=== PATIENT | female | born 1980 | race Two or more races ===

== ENCOUNTER 2023-06-03 22:55 | Emergency (ER) | payer OTHER ==
[~2023-06-03] VITALS: Ht 152.4 cm; Wt 74.1 kg
[2023-06-03 23:17] LABS: Basophils # (auto) 0 10 ^3/uL (0-0.2); Basophils % (auto) 0.3 % (0.0-2.0); Eosinophils # (auto) 0.3 10 ^3/uL (0-0.8); Eosinophils % (auto) 3.4 % (0.0-7.0); Hematocrit 34.6 % (36.0-46.0); Lymphocytes # (auto) 2.2 10 ^3/uL (0.4-5.4); Lymphocytes % (auto) 29.2 % (10.0-50.0); Mean Corpuscular Hemoglobin 24.2 pg (28.0-32.0); Mean Corpuscular Hgb Conc. 31.9 g/dL (32.0-36.0); Mean Corpuscular Volume 75.7 fL (80.0-100.0); Monocytes # (auto) 0.7 10 ^3/uL (0-1.3); Monocytes % (auto) 8.8 % (0.0-12.0); Neutrophils # (auto) 4.4 10 ^3/uL (1.6-8.6); Neutrophils % (auto) 58.3 % (37.0-80.0); Red Blood Cells 4.57 10^6/uL (4.0-5.20); Red Cell Distribution Width 15.7 % (11.8-14.3); White Blood Cell 7.6 10^3/uL (4.4-10.8)
[2023-06-03 23:22] LABS: Chloride 108 mmol/L (98-107); Potassium 3.4 mmol/L (3.5-5.1); Sodium 138 mmol/L (136-145)
[2023-06-03 23:23] LABS: Anion Gap 7 (5-15); Calcium 9.1 mg/dL (8.7-10.4); Carbon Dioxide 23 mmol/L (20-30)
[2023-06-03 23:25] LABS: Urine Bacteria NONE SEEN /hpf (None Seen); Urine Blood Negative /uL (Negative); Urine Clarity HAZY (Clear); Urine Color Yellow (Yellow); Urine Protein, UAD Negative (Negative); Urine Specific Gravity 1.023 (1.001-1.035); Urine Urobilinogen Normal (Negative); Urine WBC 2 /hpf (0 - 5); Urine pH 7.5 (5.0-8.0)
[2023-06-03 23:28] LABS: BUN/Creatinine Ratio 16.3 (10.0-20.0); Blood Urea Nitrogen 13 mg/dL (9-23); Glucose 85 mg/dL (74-106)
[2023-06-04] MEDS ORDERED: OMEP-335 PO (01:13)
[2023-06-04] MEDS ORDERED: ACET500T58 PO (01:13)
[2023-06-04] MEDS ORDERED: MAALOX PLUS or MAALOX 30 ML PO ONE (01:15)
[2023-06-04 01:45] VITALS: BP 124/76; PULSE 74; RESP 16; TEMP 97.7; O2SAT 100
== END 2023-06-04 01:51 | disposition home or self-care (01) ==
LOC: ER 22:55
DX: R07.89 Other chest pain (principal); K21.9 Gastro-esophageal reflux disease without esophagitis; E66.01 Morbid (severe) obesity due to excess calories; Z88.8 Allergy status to other drugs, medicaments and biological substances; Z68.31 Body mass index [BMI] 31.0-31.9, adult
CPT/HCPCS: 36415; 71045; 80048; 81001; 84484; 85025; 93005

== ENCOUNTER 2025-02-13 18:10 | Emergency (ER) | payer OTHER ==
[~2025-02-13] VITALS: Ht 154.9 cm; Wt 79.2 kg
[~2025-02-13 18:10] MED LIST: ACET500T58 PO; OMEP-335 PO
--- NOTE | 2025-02-13 18:22 | ECG ---
[facility] Test Date: 2025-02-13 Test Time: 18:20:31 Pat Name: ALANA BILLY Department: ED Room: Gender: F Manager Clinical Applications: AM : 1980 Requested By: RAQUEL ZIMMERMAN Order Number: [id number] Reading MD: Jc Payne Measurements Intervals Taylor Rate: 108 P: 73 FL: 132 QRS: 79 QRSD: 96 T: 45 QT: 353 QTc: 473 Interpretive Statements Sinus tachycardia Ventricular bigeminy Right atrial enlargement Low voltage, precordial leads Electronically Signed On 02-15-2025 20:36:42 PDT by Jc Payne Please click the below link to view image of tracing.
--- NOTE | 2025-02-13 18:38 | ED.PDOC ---
HPI Comments HPI:44 year old female came to ER due to shortness of breath. About an hour prior to arrival, patient developed midesternal chest pressure, non radiating associated with shortness of breath. Noted that her heart rate was low at 54 bpm. States her blood pressure levels are usually low. Initial Vitals BP: 154/77 HR: 107 RR:18 O2: 96% Past Medical History: GERD, depression, dyslipidemia Past Surgical History: , IUD Social History: Denies ETOH, smoking, and drug use. HPI: Poor Historian. REVIEW OF SYSTEMS: CONSTITUTIONAL: Denies acute: fever, diaphoresis, chills, generalized weakness. HEAD: Denies acute: headache, photophobia Eyes: Denies acute: Double vision, vision loss, eye pain, eye discharge. EARS: Denies acute: tinnitus, hearing loss, ear discharge, ear pain, THROAT: Denies acute: sore throat, swelling, difficulty swallowing , pain with swallowing, change in voice. NECK: Denies acute: neck pain, neck swelling, stiff neck. HEART: Denies acute : palpitations, LUNGS: Denies acute: wheezing, cough, hemoptysis ABDOMEN: Denies acute: abdominal pain, Nausea, Vomiting, diarrhea, melena , hematemesis, hematochezia SKIN: Denies acute: rash, redness, lesions, itchiness. EXTREMITIES: Denies acute: calf pain, numbness, tingling, weakness, denies pain in extremity. Denies acute: Low back pain. Neuro: Denies acute: focal neurological deficit, motor or sensory focal neurological deficit, tremors, seizure like activity, confusion, dizziness, change in mental status, loss of bowel or bladder function, cauda equina like symptoms. : Denies acute: dysuria, hematuria, flank pain, increase in urinary frequency. PSYCH: Denies acute: hallucination, suicidal ideation, homicidal ideation. FEMALE: Denies acute: abnormal vaginal bleeding, foul odor, unusual discharge. PHYSICAL EXAM: General: ----no----acute distress, awake and alert. Head: normocephalic, atraumatic. Neck: supple, trachea is midline, no swelling. Throat: Normal phonation. Eyes:, no erythema, no purulent discharge, no proptosis, no icterus. Heart: regular rate, regular rhythm, no significant murmur appreciated. Lungs: no apparent respiratory distress, Able to speak in full sentences. No wheezing, no rhonchi, no crackles. No stridors Clear to auscultation bilaterally. Abdomen: non tender to palpation, non distended, soft, no guarding, no rebound, + bowel sounds. Neuro: Awake, Alert, oriented to name, self, situation, follows commands GCS=15. Speech is normal. Skin: no petechia, no purpura, no cyanosis, non-pale, not jaundice. Lower extremities: --no - Pitting edema no deformity, no focal swelling, no calf TTP. Makes eye contact. moves all four extremities. Face: no apparent facial droop. Ambulating in the ED independently. ED COURSE: DISCLAIMER: This medical document was created using an electronic medical record system with voice recognition software and computerized dictation system. Although this document has been carefully reviewed, there might still be some phonetic and typographical errors. Occasional wrong-word or "sound-alike" substitutions may have occurred due to the inherent limitations of voice recognition software. These areas are purely typographical due to imperfections of the software programs and do not reflect any compromise in the patient's medical care. Please read the chart carefully and recognize, using context, where these substitutions have occurred. Chief Complaint: Shortness of Breath Time Seen by MD: 18:36 Reviewed Notes: Nurses Notes, Allergies Allergies: Coded Allergies: Ondansetron (Verified Allergy, Unknown, 06/03/23) Home Meds Active Scripts Acetaminophen (Acetaminophen) 500 Mg Tab, 500 MG PO Q4HP PRN, #30 TAB Prov:YOLANDA AGUIRRE PAC 06/04/23 Omeprazole (Omeprazole) 20 Mg Tab, 20 MG PO DAILY for 21 Days, #21 TAB Prov:YOLANDA AGUIRRE PAC 06/04/23 Information Source: Patient Mode of Arrival: Ambulatory Past Medical History PAST MEDICAL HISTORY: Depression, GERD Surgical History: MEDICAL STAFF SERVICES MANAGER History: No Pertinent MEDICAL STAFF SERVICES MANAGER History Family History Family History: Reviewed,noncontributory to illness, No family hx of Cancer, No family hx of DM, No family hx of Heart emir, No family hx of HTN, No family hx ofKidney emir, No family hx of Liver emir, No family hx of Lung emir, No family hx of Stroke Social History Smoker: Non-Smoker Alcohol: Denies ETOH Use Drugs: Denies Drug Use Lives In: Home EKG EKG : Pulse Rate (adult): 108 Cardiac Rhythm: ST Comments Ventricular bigeminy Was a procedure done? Was a procedure done?: No CP Differential Dx Differential Diagnosis: N/A Differential Diagnosis: Angina, Chest Wall Pain, Costochondritis, Esophageal reflux/spasm, Gastritis, Myocardial Infarction, Other (Ddx include but not limitied to gastritis, musculoskeletal pain, radiculopathy, atypical chest pain, dissection, aneurysm, ACS, unstable angina, hiatal hernia, GERD, anxiety, costochondritis, PE, pneumothroax, neoplasm, cardiac ischemia, drug abuse, anemia.) X-Ray, Labs, Meds, VS Vital Signs Date Time Temp Pulse Resp B/P (MAP) Pulse Ox O2 Delivery O2 Flow Rate FiO2 02/13/25 21:21 98.2 83 16 14/80 (58) 99 98.2 02/13/25 18:38 108 02/13/25 18:20 108 02/13/25 18:12 97.2 107 18 154/77 96 97.2 Lab Test 02/13/25 21:25 02/13/25 21:23 02/13/25 19:18 02/13/25 18:34 Range/Units Blood Gas Specimen Type Arterial Blood Gas Sample Site Right radial Blood Gas Patient Temperature 37.0 Arterial Blood Date Drawn [id number] Arterial Blood pH 7.407 7.350-7.450 Arterial Blood Partial Pressure CO2 31.9 L 32.0-45.0 mmHg Arterial Blood Partial Pressure O2 92.9 83.0-108.0 mmHg Arterial Blood HCO3 19.6 L 21.0-28.0 mmol/L Arterial Blood Oxygen Saturation 97.3 94.0-98.0 % Arterial Blood Base Excess -3.9 L -2.0-3.0 mmol/L Arterial Blood Oxyhemoglobin 95.8 94.0-98.0 % Arterial Blood Carboxyhemoglobin 1.0 0.5-1.5 % Arterial Blood Methemoglobin 0.5 0.0-1.5 % Paul Test Yes Blood Gas Total Hemoglobin 14.90 12.0-16.0 g/dL Blood Gas Modality Room air FiO2 % 21.0 Troponin I High Sensitivity < 3 L < 3 L < 3 L </=34 ng/L White Blood Count 8.9 4.4-10.8 10^3/uL Red Blood Count 4.90 4.0-5.20 10^6/uL Hemoglobin 14.5 12.2-16.2 g/dL Hematocrit 42.9 36.0-46.0 % Mean Corpuscular Volume 87.6 80.0-100.0 fL Mean Corpuscular Hemoglobin 29.6 28.0-32.0 pg Mean Corpuscular Hemoglobin Concent 33.8 32.0-36.0 g/dL Red Cell Distribution Width 13.1 11.8-14.3 % Platelet Count 269 140-450 10^3/uL Mean Platelet Volume 8.1 6.9-10.8 fL Neutrophils (%) (Auto) 64.4 37.0-80.0 % Lymphocytes (%) (Auto) 22.4 10.0-50.0 % Monocytes (%) (Auto) 9.6 0.0-12.0 % Eosinophils (%) (Auto) 2.9 0.0-7.0 % Basophils (%) (Auto) 0.7 0.0-2.0 % Neutrophils # (Auto) 5.7 1.6-8.6 10 ^3/uL Lymphocytes # (Auto) 2.0 0.4-5.4 10 ^3/uL Monocytes # (Auto) 0.9 0-1.3 10 ^3/uL Eosinophils # (Auto) 0.3 0-0.8 10 ^3/uL Basophils # (Auto) 0.1 0-0.2 10 ^3/uL Nucleated Red Blood Cells 0.0 % D-Dimer, Quantitative 0.22 0.0-0.49 mg/L FEU Sodium Level 140 136-145 mmol/L Potassium Level 3.7 3.5-5.1 mmol/L Chloride Level 108 H 98-107 mmol/L Carbon Dioxide Level 20 20-31 mmol/L Anion Gap 12 5-15 Blood Urea Nitrogen 16 9-23 mg/dL Creatinine 0.84 0.550-1.02 mg/dL Glomerular Filtration Rate Calc 88 >90 mL/min BUN/Creatinine Ratio 19.0 10.0-20.0 Serum Glucose 105 74-106 mg/dL Calcium Level 8.9 8.7-10.4 mg/dL Total Bilirubin 0.2 0.2-1.0 mg/dL Aspartate Amino Transferase (AST) 16 13-40 U/L Alanine Aminotransferase (ALT) 17 7-40 U/L Alkaline Phosphatase 74 46-116 U/L B-Type Natriuretic Peptide 2.80 0-100 pg/mL Total Protein 7.4 5.7-8.2 g/dL Albumin 4.4 3.2-4.8 g/dL [place] [address] Ph: [phone] DIAGNOSTIC IMAGING Diagnostic Imaging Report : [id number] Signed PATIENT: ALANA BILLY V ACCT: [id number] UNIT: [id number] : 1980 LOC: ER ROOM / BED: / AGE / SEX: 44 / F ADM STATUS: REG ER SERVICE 35 ORDERING PHYSICIAN: RAQUEL ZIMMERMAN DO PROCEDURE(s): CXRP - CHEST PORTABLE REASON: CP/SOB ORDER NUMBER(s): [id number], ACCESSION NUMBER(s): [id number] CHEST RADIOGRAPH Indication: CP/SOB Technique: Single frontal view of the chest was obtained Comparison: XY CHEST PORTABLE on DOS: 06/03/23 FINDINGS: Lines and Tubes: None Lungs: No focal consolidation. Pleura: No effusion. No pneumothorax. Cardiomediastinal contours: Unremarkable Bones: No acute osseous abnormality. IMPRESSION: 1. No acute cardiopulmonary disease. 2. No significant change from 06/03/2023. ATED BY: ROSAMARIA HEDRICK Jr., DO DICTATED DATE/TIME: 02/13/251912 SIGNED BY: ROSAMARIA HEDRICK Jr., DO SIGNED DATE/TIME: 02/13/251912 CC: Time of 1ST Reevaluation: 18:37 Reevaluation 1ST: Unchanged Patient Education/Counseling: Diagnosis, Treatment Family Education/Counseling: No Family Present Comments MDM: patient presented with the above HPI.---cardiac---workup was initiated. patient was found with the above mentioned diagnosis. the following medications were ordered: please refer to order lists of meds and tests obtained by myself Dr. Zimmerman. Patient ED course and VS have been stabilized. Patient has been reassessed in the ED and remained in a stable condition. Pertinent incidental findings were discussed with the patient and/or family. Patient/family voices understanding and is agreeable with plan. Patient has been observed in the ED adequate length of time to insure improvement/stability. Escalation of care considered: Consideration of escalation to observation or admission Unremarkable workup. Heart score is low Patient was DISCHARGED home in a stable condition. All the reports of any imaging studies that were ordered by myself were reviewed by myself. SEPSIS Sepsis Screen Date sepsis recognized/suspect: Feb 13, 2025 Time Sepsis recognized/suspect: 1812 Recent Procedure: No On Antibiotic Therapy: No Respiratory Rate >20: No Heart Rate >90: Yes Temp<36 C (96.8 F) or >38.3 C: No SBP <90 or MAP <65 mmHG: No New Acute Mental Status Change: No Is the patient on CPAP, BIPAP,: No Physician Orders Electrocardigram (02/13/25 19:14) Electrocardigram (02/13/25 21:14) Hot Box Operator (02/13/25 ) Chest Portable (02/13/25 18:36) Abg W/ Co-Ox (02/13/25 21:07) Vital Signs Date Time Temp Pulse Resp B/P (MAP) Pulse Ox O2 Delivery O2 Flow Rate FiO2 02/13/25 21:21 98.2 83 16 14/80 (58) 99 98.2 02/13/25 18:38 108 02/13/25 18:20 108 02/13/25 18:12 97.2 107 18 154/77 96 97.2 Laboratory Tests Test 02/13/25 18:34 White Blood Count 8.9 10^3/uL (4.4-10.8) Departure 1 Departure Time of Disposition: 21:07 Impression: Primary Impression: Chest pain Additional Impression: Dyspnea Disposition: 01 HOME / SELF CARE / HOMELESS Condition: Stable Additional Instructions: Additional instructions: Please read all instructions provided in this packet carefully. You MUST follow-up with your primary care/family doctor in 1 to 2 days. If you are unable to see your primary care/family doctor, please return to our emergency room for re-assessment and re-evaluation in 1 to 2 days. Return to the emergency room here in our facility or to the nearest ER [facility] if your symptoms change or worsen. CONSULTATIONS: you MUST Follow-up for consultation as soon as possible with: -cardiology in 1-2 days. Please call for appointment. You MUST call the consultants office yourself to make an appointment. You may need to arrange that through your insurance and/or your primary/family doctor. If you are unable to see the [facility] consultant in 1 to 2 days, you must return to our emergency room (or any other ER of your choice) for re-assessment and re- evaluation. Adequate fluid hydration. Although you have been discharged from the Emergency Department, this does not mean that you have a "clean bill of health". No definitive diagnosis for your symptoms has been made today. It is possible that you are in the process of developing a serious illness. This is why you must return to the ED without fail if any new or worsening symptoms develop. Discharged With: Self Critical Care Note Critical Care Time?: No Stability Stability form required: No Heart Score Heart Score: Heart Score Response (Comments) Value History Slightly Suspicious 0 EKG Repolarization Disturb 1 Age <45 0 Risk Factors 1 or 2 risk factors 1 Troponin Normal limit 0 Total 2 I personally scribed for RAQUEL ZIMMERMAN DO ([email or web address]) on 02/13/25 at 18:38. Electronically submitted by Donnell Nino ([email or web address]). I personally scribed for RAQUEL ZIMMERMAN DO ([email or web address]) on 02/13/25 at 20:23. Elect ronically submitted by Donnell Nino ([email or web address]). RAQUEL ZIMMERMAN DO Feb 13, 2025 18:38
--- NOTE | 2025-02-13 19:15 | DVH ---
CHEST RADIOGRAPH Indication: CP/SOB Technique: Single frontal view of the chest was obtained Comparison: XY CHEST PORTABLE on DOS: 06/03/23 FINDINGS: Lines and Tubes: None Lungs: No focal consolidation. Pleura: No effusion. No pneumothorax. Cardiomediastinal contours: Unremarkable Bones: No acute osseous abnormality. IMPRESSION: 1. No acute cardiopulmonary disease. 2. No significant change from 06/03/2023.
[2025-02-13 19:43] LABS: Hematocrit 42.9 % (36.0-46.0); Hemoglobin 14.5 g/dL (12.2-16.2); Mean Corpuscular Hemoglobin 29.6 pg (28.0-32.0); Mean Corpuscular Volume 87.6 fL (80.0-100.0); Nucleated Red Blood Cells % 0.0 %
[2025-02-13 19:53] LABS: Alanine Aminotransferase 17 U/L (7-40); Albumin 4.4 g/dL (3.2-4.8); Alkaline Phosphatase 74 U/L (46-116); Anion Gap 12 (5-15); BUN/Creatinine Ratio 19.0 (10.0-20.0); Blood Urea Nitrogen 16 mg/dL (9-23); Calcium 8.9 mg/dL (8.7-10.4); Glucose 105 mg/dL (74-106); Potassium 3.7 mmol/L (3.5-5.1); Sodium 140 mmol/L (136-145); Total Protein 7.4 g/dL (5.7-8.2)
[2025-02-13 19:57] LABS: Bilirubin, Total 0.2 mg/dL (0.2-1.0); Carbon Dioxide 20 mmol/L (20-31); Chloride 108 mmol/L (98-107)
[2025-02-13 21:29] LABS: Base Excess -3.9 mmol/L (-2.0-3.0)
[2025-02-13 22:44] VITALS: BP 147/90; PULSE 79; RESP 18; TEMP 98.1; O2SAT 99
== END 2025-02-13 22:45 | disposition home or self-care (01) ==
LOC: ER 18:13
DX: R07.89 Other chest pain (principal); R06.00 Dyspnea, unspecified; F32.A Depression, unspecified; K21.9 Gastro-esophageal reflux disease without esophagitis; E78.5 Hyperlipidemia, unspecified; Z98.890 Other specified postprocedural states; Z79.899 Other long term (current) drug therapy
CPT/HCPCS: 36415; 36600; 71045; 80053; 82805; 83880; 84484; 85025; 85379; 93005